=== PATIENT | female | born 1950 | race Caucasian/White ===

== ENCOUNTER 2017-10-28 12:10 | Emergency (ER) | payer MEDICARE, OTHER ==
[~2017-10-28] VITALS: Ht 158.8 cm; Wt 86.4 kg
[2017-10-28 12:11] VITALS: BP 168/77; PULSE 103; RESP 15; TEMP 99.4; O2SAT 96
[2017-10-28 13:19] LABS: BACTERIA, URINE MANY /hpf; BLOOD, URINE NEG (NEG); COMMENT (UR) CULTURE INDICATED; CULTURE IF INDICATED CULTURE INDICATED; GLUCOSE,URINE NEG (NEG); KETONE, URINE NEG (NEG); MUCUS URINE FEW /lpf (OCC); NITRITE,URINE POS (NEG); SQUAMOUS EPITHELIAL CELL URINE 1 /hpf (0-5); URINE COLOR YELLOW (YELLW/STRAW)
--- NOTE | 2017-10-28 14:00 | PD ---
HPI Chief Complaint: Complaint Time Seen by Provider: 13:59 Travel History International Travel<30 days: No Contact w/Intl Traveler<30days: No Traveled to known affect area: No History of Present Illness HPI 67-year-old female with history of MS presents the emergency department with question urinary tract infection. Patient states recent urinary urgency, frequency, and odor. Patient has numbness in the area so is not sure about dysuria. The patient had Some mild right-sided low back pain this morning is why she came in today. Patient denies fever, chills, nausea, or vomiting. She has history of recurrent urinary tract infections. She is visiting here from [place]. She is allergic to codeine. [facility] Past Medical History Cardiovascular Problems: Yes (HTN) Diabetes: Yes Social History Alcohol Use: Yes Tobacco Use: No Substance Use: No Allergies-Medications (Allergen,Severity, Reaction): Coded Allergies: codeine (Verified Adverse Reaction, Intermediate, 10/28/17) Review of Systems Except as stated in HPI: all other systems reviewed are Neg General / Constitutional: No: Fever Eyes: No: Visual changes HENT: No: Headaches Cardiovascular: No: Chest Pain or Discomfort Respiratory: No: Shortness of Breath Gastrointestinal: No: Abdominal Pain Genitourinary: Positive: Urgency, Frequency, Dysuria, Flank Pain Musculoskeletal: No: Pain Skin: No Rash Neurologic: No: Weakness Psychiatric: No: Depression Endocrine: No: Polydipsia Hematologic/Lymphatic: No: Easy Bruising Physical Exam Narrative GENERAL: Patient appears in no acute distress. SKIN: Warm and dry. HEAD: Atraumatic. Normocephalic. EYES: Pupils equal and round. No scleral icterus. No injection or drainage. ENT: No nasal bleeding or discharge. Mucous membranes pink and moist. NECK: Trachea midline. No JVD. CARDIOVASCULAR: Regular rate and rhythm. RESPIRATORY: No accessory muscle use. Clear to auscultation. Breath sounds equal bilaterally. GASTROINTESTINAL: Abdomen soft, non-tender, nondistended. Hepatic and splenic margins not palpable. Mild right-sided CVA tenderness with percussion. MUSCULOSKELETAL: Extremities without clubbing, cyanosis, or edema. No obvious deformities. NEUROLOGICAL: Awake and alert. No obvious cranial nerve deficits. Motor grossly within normal limits. Five out of 5 muscle strength in the arms and legs. Normal speech. PSYCHIATRIC: Appropriate mood and affect; insight and judgment normal. Data Data Last Documented VS Vital Signs Date Time Temp Pulse Resp B/P (MAP) Pulse Ox O2 Delivery O2 Flow Rate FiO2 10/28/17 12:11 99.4 103 15 168/77 (107) 96 Orders Orders Urinalysis - C+S If Indicated (10/28/17 13:02) Urine Culture (10/28/17 12:00) Nitrofurantoin Monohyd Macrocr (Macrobid (10/28/17 14:15) Labs Laboratory Tests Test 10/28/17 12:00 Urine Color YELLOW Urine Turbidity CLEAR Urine pH 5.0 Urine Specific Rufe 1.014 Urine Protein NEG mg/dL Urine Glucose (UA) NEG mg/dL Urine Ketones NEG mg/dL Urine Occult Blood NEG Urine Nitrite POS Urine Bilirubin NEG Urine Urobilinogen LESS THAN 2.0 MG/DL Urine Leukocyte Esterase NEG Urine RBC LESS THAN 1 /hpf Urine WBC 1 /hpf Urine Squamous Epithelial Cells 1 /hpf Urine Bacteria MANY /hpf Urine Mucus FEW /lpf Microscopic Urinalysis Comment CULTURE INDICATED MDM Medical Decision Making Medical Screen Exam Complete: Yes Emergency Medical Condition: Yes Differential Diagnosis Dysuria. Urinary frequency. Urinary tract infection. Narrative Course Urinalysis ordered in triage. Urinalysis shows positive nitrites and signs of UTI. Urine culture is pending. Patient treated with Macrodantin 100 mg by mouth twice a day 7 days. Patient is recommended to follow-up in 7 days to ensure clearance. Diagnosis Primary Impression: Urinary tract infection Qualified Codes: N30.00 - Acute cystitis without hematuria Referrals: [facility] PO Patient Instructions: Dysuria (ED), General Instructions Additional Instructions: Urinalysis shows positive nitrites and signs of UTI. Urine culture is pending. Patient treated with Macrodantin 100 mg by mouth twice a day 7 days. Patient is recommended to follow-up in 7 days to ensure clearance. Med/Other Pt SpecificInfo: Prescription(s) given Scripts Nitrofurantoin Monohydrate Macrocrystals (Macrobid) 100 Mg Cap 100 MG PO BID for Infection for 7 Days, #14 CAP 0 Refills Prov: Holly Bateman Mayo FRANCISCO 10/28/17 Disposition: 01 DISCHARGE HOME Condition: Stable Amol Brown Oct 28, 2017 14:00
[2017-10-28] MEDS ORDERED: MACR100C2 PO (14:04)
[2017-10-28] MEDS ORDERED: ASPI81TA23 PO (14:09)
[2017-10-28] MEDS ORDERED: LISI10TA3 PO (14:09)
[2017-10-28] MEDS ORDERED: METO1TAB42 PO (14:09)
[2017-10-28] MEDS ORDERED: GABA800T PO (14:09)
[2017-10-28] MEDS ORDERED: SIMV20TA PO (14:09)
[2017-10-28] MEDS ORDERED: RANI150T PO (14:09)
[2017-10-28] MEDS ORDERED: METF500T PO (14:09)
[2017-10-28] MEDS ORDERED: HYDR12.57 PO (14:09)
[2017-10-28] MEDS ORDERED: BACL20TA PO (14:09)
[2017-10-28] MEDS ORDERED: MIRA50TA PO (14:09)
[2017-10-28] MEDS ORDERED: NITROFURANTOIN MONOHYD MACROCR 100 MG CAP PO ONE (14:15)
== END 2017-10-28 14:26 | disposition home or self-care (01) ==
LOC: NEPD 12:10
DX: N30.00 Acute cystitis without hematuria (principal); B96.1 Klebsiella pneumoniae [K. pneumoniae] as the cause of diseases classified elsewhere
CPT/HCPCS: 81001; 87077; 87086; 87186; 99283